=== PATIENT | male | born 1960 | race Caucasian/White ===

== ENCOUNTER 2025-04-13 10:00 | Emergency (ER) | payer MEDICARE, MEDICAID, SELFPAY ==
[2025-04-13] VITALS (22 sets, daily range): BP systolic 127–169; BP diastolic 46–72; PULSE 58–103; RESP 12–23; TEMP 36.7; O2SAT 98–100
--- NOTE | ~2025-04-13 | CT_ITS ---
EXAM/PROCEDURE: CT LE LT w con HISTORY: necrotic LLE COMPARISON: None available. TECHNIQUE: Contrast-enhanced CT of the left leg performed FINDINGS: [id number] begins at the level of the distal popliteal artery. There is moderately severe disease in the popliteal artery which is patent. The tibioperoneal trunk is nearly completely occluded in the distal portion, however flow extends into the anterior and posterior tibial arteries to the hindfoot region. The anterior tibial artery is severely narrowed, with the peroneal artery robust and providing collateralization to the dorsalis pedis artery in the hindfoot region. There appears to be open wound along the anterior margin of the distal calf with subjacent erosive changes in the tibia consistent with osteitis/osteomyelitis. Degenerative changes throughout the bones. Extensive edematous changes in the subcutaneous soft tissues throughout the calf ankle and foot. The deep compartments appear relatively preserved, however along the anterior margin of the distal leg/tibia, there appears to be soft tissue irregularity possibly representing open wound. There is more extensive infiltrative appearing changes subjacent to this but no drainable fluid collection seen. No evidence of architectural distortion within the deep compartments of the calf or compartment syndrome. IMPRESSION: 1. There appears to be open wound along the anterior margin of the distal calf adjacent to the anterior margin of the tibia with subjacent erosive changes in the tibia consistent with osteitis/osteomyelitis. Consider correlation with MRI for better evaluating the extent of suspected osteomyelitis. 2. No abscess seen. Extensive edematous changes which could be associated with vascular congestion, though inflammatory/infectious process such as cellulitis could have a similar appearance. 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 The dorsalis pedis artery is patent with collateralized flow from the peroneal artery. Reviewed, dictated and finalized at location A. OR TELECOMMUNICATIONS CONSULTANT IMPRESSION: 1. There appears to be open wound along the anterior margin of the distal calf adjacent to the anterior margin of the tibia with subjacent erosive changes in the tibia consistent with osteitis/osteomyelitis. Consider correlation with MRI for better evaluating the extent of suspected osteomyelitis. 2. No abscess seen. Extensive edematous changes which could be associated with vascular congestion, though inflammatory/infectious process such as cellulitis could have a similar appearance. Also correlate with clinical exam for 3.Moderate to severe stenosis in the tibial peroneal trunk as well as the anter ior tibial artery. The dorsalis pedis artery is patent with collateralized flow from the peroneal artery.
--- NOTE | 2025-04-13 10:21 | ED.LOWEXIN ---
HPI - Extremity Injury (Lower) General Chief Complaint: Extremity Injury, Lower Stated Complaint: foot issue Time Seen by Provider: 04/13/25 10:12 History of Present Illness HPI Narrative: Patient had a spider bite about 2 years ago to left lower leg, complicated by necrosis, requiring debridement, and osteomyelitis. Wound care nurse noticed that it seemed to be looking worse and sent him in today. Related Data Allergies Allergy/AdvReac Type Severity Reaction Status Date / Time No Known Allergies Allergy Unknown Verified 04/13/25 11:16 Review of Systems Review of Systems: All systems reviewed & are unremarkable except as noted in HPI and below Exam Narrative: EXAMINATION OF ORGAN SYSTEMS/BODY AREAS: Constitutional: Vital signs per nursing GENERAL:No acute distress, non-toxic appearing. HEAD: Normal with no signs of head trauma. EYES: EOMI, conjunctiva normal ENT: Hearing grossly intact LUNGS: Nonlabored breathing. HEART: Regular rate and rhythm ABD: Soft, nontender to palpation EXT: Normal range of motion, large necrotic chronic appearing wound to the left lower leg SKIN: Large necrotic chronic appearing wound to the left lower leg NEURO: Alert. No gross focal sensory or strength deficits. PSYCH: Normal affect Course Vital Signs Vital signs: Vital Signs Temperature 98.1 F 04/13/25 10:01 Pulse Rate 77 04/13/25 10:01 Respiratory Rate 15 04/13/25 10:01 Blood Pressure 143/63 H 04/13/25 10:01 Pulse Oximetry 100 04/13/25 10:01 Oxygen Delivery Room Air 04/13/25 10:01 Temperature 98.1 F 04/13/25 10:01 Pulse Rate 64 04/13/25 12:32 Respiratory Rate 19 04/13/25 12:32 Blood Pressure 134/61 04/13/25 12:32 Pulse Oximetry 100 04/13/25 11:17 Oxygen Delivery Room Air 04/13/25 10:01 [facility] MDM Narrative Medical decision making narrative: Patient presents here with worsening left leg wound, sent here by wound care. Labs and CT concerning for osteomyelitis, elevated white count, CRP, ESR. Patient had most recent surgery done at [facility], so I will plan to transfer him back there. Dr. Dianelys prado at [facility] for continuity of care where pt had vascular surgery. Differential Diagnosis Differential Diagnosis: osteo, gangrene, etc Lab Data 04/13/25 10:44 04/13/25 10:44 Labs: Lab Results 04/13/25 04/13/25 Range/Units 10:44 11:04 WBC 10.6 H (4.5-10.0) K/mm3 RBC 4.48 L (4.6-6.20) M/mm3 Hgb 13.1 L (14.0-18.0) g/dL Hct 40.7 L (42.0-52.0) % MCV 90.8 (80-100) fl MCH 29.2 (26-34) pg MCHC 32.2 (32-36) g/dl RDW 13.3 (11.5-14.5) % Plt Count 326 (150-375) k/mm3 MPV 9.6 (7.4-10.4) fl Immature Gran % (Auto) 0.5 (0-0.5) % Neut % (Auto) 69.2 (45.5-73.1) % Lymph % (Auto) 22.9 (18.3-44.2) % Boyle % (Auto) 5.0 (2.6-8.5) % Eos % (Auto) 2.0 (0-4.4) % Baso % (Auto) 0.4 (0.2-1.2) % Lymph # (Auto) 2.42 (0.9-3.2) K/mm3 Boyle # (Auto) 0.5 (0.1-0.6) K/mm3 Eos # (Auto) 0.2 (0-0.3) K/mm3 Baso # (Auto) 0.0 (0.0-0.1) K/mm3 Abs Immat Gran (auto) 0.05 H (0.00-0.031) K/mm3 Absolute Neuts (auto) 7.3 H (1.3-6.7) K/mm3 Absolute Nucleated RBC 0.000 (0.0-0.012) K/mm3 Nucleated RBC % 0.0 (0.0-0.2) % ESR 99 H (0-20) mm/hr Sodium 141 (137-145) mmol/L Potassium 4.5 (3.4-5.0) mmol/L Chloride 105 (98-107) mmol/L Carbon Dioxide 26 (22-30) mmol/L Anion Gap 10 (4-12) mmol/L BUN 14 (9-20) mg/dL Creatinine 0.98 (0.7-1.3) mg/dL Estim Creat Clear Calc 63 ml/min Estimated GFR > 60 (59 - ) Glucose 104 (65-110) mg/dL Lactic Acid 1.4 (0.7-2.0) mmol/L Calcium 9.3 (8.4-10.2) mg/dL Total Bilirubin 0.5 (0.2-1.3) mg/dL AST 30 (17-59) U/L ALT 20 (6-50) U/L Alkaline Phosphatase 83 (38-126) U/L C-Reactive Protein 2.6 H (<1.0) mg/dL Total Protein 9.0 H (6.3-8.2) g/dL Albumin 4.5 (3.5-5.1) g/dL Urine Color Yellow (Yellow) Urine Appearance Clear (Clear) Urine pH 5.5 (5.0-9.0) Ur Specific [place] 1.006 (1.001-1.035) Urine Protein Negative (Negative) mg/dL Urine Glucose (UA) Negative (Negative) mg/dL Urine Ketones Negative (Negative) mg/dL Ur Blood (Man) Negative (Negative) Urine Nitrate Negative (Negative) Urine Bilirubin Negative (Negative) Urine Urobilinogen 0.2 (<2.0) mg/dL Leukocyte Esterase Rfl Negative (Negative) RONIT/UL Imaging Data Radiologist's impression: ITS Impressions Lower Extremity CT 04/13/25 11:47 IMPRESSION: 1. There appears to be open wound along the anterior margin of the distal calf adjacent to the anterior margin of the tibia with subjacent erosive changes in the tibia consistent with osteitis/osteomyelitis. Consider correlation with MRI for better evaluating the extent of suspected osteomyelitis. 2. No abscess seen. Extensive edematous changes which could be associated with vascular congestion, though inflammatory/infectious process such as cellulitis could have a similar appearance. 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 The dorsalis pedis artery is patent with collateralized flow from the peroneal artery. Critical Care Time Critical Care Time Critical Care Time: Yes Indication: Necrotic leg would Initial evaluation, discuss w/ involved parties, attempting to gather old records: 10 minutes Documenting medical record: 5 minutes Review of results (EKG's, labs, imaging): 5 minutes Serial repeat bedside evaluation: 10 minutes Discussing case with multiple memebers of the care team and consultants: 5 minutes Total Critical Care Time: 35 Discharge Plan Discharge Clinical Impression: Leg wound, left Patient Disposition: Acute Care Hospital Condition: Serious Patient Language: Amharic Follow-up/Referrals: Lucien,Bello Hooker [Non-Staff]
[2025-04-13 10:52] LABS: Hematocrit 40.7 % (42.0-52.0); Hemoglobin 13.1 g/dL (14.0-18.0); Immature Granulocyte Percent A 0.5 % (0-0.5); Lymphocytes Absolute Auto 2.42 K/mm3 (0.9-3.2); Mean Corpuscular HGB Conc 32.2 g/dl (32-36); Mean Corpuscular Hemoglobin 29.2 pg (26-34); Mean Corpuscular Volume 90.8 fl (80-100); Nucleated Red Blood Cells Absolute Auto 0.000 K/mm3 (0.0-0.012); Nucleated Red Blood Cells Perc 0.0 % (0.0-0.2); Platelet Count Result 326 k/mm3 (150-375); Red Blood Count 4.48 M/mm3 (4.6-6.20); White Blood Count 10.6 K/mm3 (4.5-10.0)
[2025-04-13 11:08] LABS: Alanine Aminotransferase 20 U/L (6-50); Albumin Level 4.5 g/dL (3.5-5.1); Alkaline Phosphatase 83 U/L (38-126); Anion Gap 10 mmol/L (4-12); Aspartate Amino Transferase 30 U/L (17-59); Bilirubin,Total 0.5 mg/dL (0.2-1.3); Blood Urea Nitrogen 14 mg/dL (9-20); CRP 2.6 mg/dL (<1.0); Calcium 9.3 mg/dL (8.4-10.2); Carbon Dioxide 26 mmol/L (22-30); Chloride 105 mmol/L (98-107); Estimated CRCL calculation 63 ml/min; Estimated Glomerular Filt Rate > 60; Glucose 104 mg/dL (65-110); Potassium 4.5 mmol/L (3.4-5.0); Sodium 141 mmol/L (137-145); Total Protein 9.0 g/dL (6.3-8.2)
[2025-04-13 11:13] LABS: Add Urine Microscopic? NO; Appearance Urine Clear (Clear); Glucose Urine UA Negative (Negative); Leukocyte Esterase Ur Negative LEU/UL (Negative); Nitrate Urine Negative (Negative); Specific Grav Ur 1.006 (1.001-1.035)
[2025-04-13] MEDS: MORPHINE SULFATE (*CRX) 4 MG/ML INJ 2 MG IV PUSH (11:17)
--- OUTSIDE RECORDS SUMMARY | 2025-04-13 12:57 | XMS_ITS | Encounter Summary ---
Author Organization 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 Gender Identity Not on file Sexual Orientation Not on file documented as of this encounter Plan of Treatment Not on file documented as of this encounter Procedures Procedure Name Priority Date/Time Associated Diagnosis Comments VANCOMYCIN LEVEL TROUGH STAT 12/03/2024 5:30 AM CDT documented in this encounter Results * VANCOMYCIN LEVEL TROUGH (12/03/2024 5:30 AM CDT) Vancomycin Trough 14.6 10.0 - 20.0 ug/mL 12/03/2024 9:46 AM CDT [facility] Blood BLOOD SPECIMEN / Unknown Venipuncture / Unknown 12/03/2024 5:30 AM CDT 12/03/2024 9:24 AM CDT us Provider Unknown LAB - CHEMISTRY ORDERABLES Di l Result [facility] [address] [place] [address] documented in this encounter Visit Diagnoses Not on filedocumented in this encounter Care Teams Harp Action Assembler Relationship Specialty Start Date End Date Arsen Alan MD PCP - General Internal Medicine 02/25/12 documented as of this encounter
--- OUTSIDE RECORDS SUMMARY | 2025-04-13 12:57 | XMS_ITS | Patient Health Record ---
Author Organization [facility] Address [address] [address] Care Team Providers Care Spray Gun Sizer Name Role Phone Arsen Alan Primary Care Provider Reason For Referral No Information Medications Medication SIG (Take, Route, Frequency, Duration) Notes Start Date End Date Status traMADol HCl 50MG 1 tablet PO every 6 hrs [facility] 04/29/18 00 Active Clobetasol Propionate 0.05% 1 application to affected area Externally Twice a day [facility] Atorvastatin Calcium 10MG OR BEDTIME [facility] Not-Taking Immunizations Vaccine Route Administration Date Status Comme nts Influenza (split), 3 yrs and above Unknown 02/11/2013 Pending Inactivated Pneumococcal polysaccharide PPV23 Unknown 02/11/2013 Administered Social History Tobacco use other than smoking: Question Answer Notes Are you an other tobacco user? No Problems Problem Type SNOMED Code ICD Code Onset Dates Problem Status W/U Status Risk Notes Problem Hyperlipidemia (21827345) Hyperlipidemia (E78.5) Active confirmed Problem Hyperglycemia (34866134) Hyperglycemia (R73.9) Active confirmed Problem Back pain (782128203) Back pain (M54.9) Active confirmed Problem Tobacco abuse (5180698603) Tobacco abuse (Z72.0) Active confirmed Problem Psoriasis (0321477) Psoriasis (L40.9) Active confirmed Problem Hyperlipidemia (82908249) Other and unspecified hyperlipidemia (272.4) Active confirmed Problem Elevated white blood cell count (288.6) Active confirmed Problem Diseases of blood and blood-forming organs (411664245) Other diseases of blood and blood-forming organs (289) Active confirmed Problem Psychosexual dysfunction associated with inhibited sexual excitement (232908147575837) 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 Problem Abnormal glucose level (982075734) Other abnormal glucose (790.29) Active confirmed Plan Of Treatment No Information Insurance Providers Payer Name Payer Address Payer Phone Subscriber Number Group Number Insured Name Patient Relationship to Insured Coverage Start Date Coverage End Date [employer] [facility] [address] [address] [place], [place] [id number] ALIE HUYNH Self - patient is the insured 5 Medical (General) History Medical History History ICD Code Hyperlipidemia Low back pain Psoriasis Secondary polycythemia Surgical History Surgery Date(Month/Year) Pneumothorax Rt. arm surgery
--- OUTSIDE RECORDS SUMMARY | 2025-04-13 12:57 | XMS_ITS | Clinical Summary ---
Author Organization [facility] Address [address] [place] [address] Care Team Providers Care Software Computer Specialist Name Role Phone Arsen Alan MD Primary Care Provider Source Comments [facility] [employer],non-owned Affiliates and Associated Physician Practices is amultiple site organization consisting of ambulatory clinics and hospital sitesin [place], [place], [place] and [place]. This disclosure is being madepursuant to the Care Everywhere program and may not contain all information available regarding this patient. 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 Gender Identity Not on file Sexual Orientation Not on file Plan of Treatment Health Maintenance Due Date Last Done Comments COLOGUARD (AGES 45-75) - COL ON CA SCREENING 1958 COLON MONITORING 1958 COLONOSCOPY - COLON CA SCREENING 1958 CT COLONOGRAPHY - COLON CA SCREENING 1958 Colorectal Cancer Screening 1958 FIT - COLON CA SCREENING 1958 FLEX SIG - COLON CA SCREENING 1958 LIPID TESTING 1958 HEPATITIS C SCREENING 10/07/1976 DTAP/TDAP/TD VACCINES (1 - Tdap) 1977 PNEUMOCOCCAL VACCINE 50+ (1 of 1 - PCV) 2008 ZOSTER VACCINE (1 of 2) 2008 DEPRESSION SCREENING 04/29/2024 MEDICARE AWV CALENDAR YEAR 2024 COVID-19 VACCINE (1 - 2024-2 6 season) 2024 INFLUENZA VACCINE (#1) 2024 Respiratory Syncytial Virus (RSV) Vaccine Pt: or over 60 yrs (1 - 1-dose 75+ series) 2033 HEPATITIS B VACCINE Aged Out No longe r eligible based on patient's age to complete this topic HIB VACCINE Aged Out No longer eligi ble based on patient's age to complete this topic HPV VACCINE Aged Out No longer eligi ble based on patient's age to complete this topic MENINGOCOCCAL (Group B) VACC INE SHARED DECISION-MAKING Aged Out No longer eligibl e based on patient's age to complete this topic MENINGOCOCCAL GROUPS A/C/Y/W VACCINE Aged Out No longer eligible b ased on patient's age to complete this topic Insurance [facility] - [place] Care Teams Software Computer Specialist Relationship Specialty Start Date End Date Arsen Alan MD PCP - General Internal Medicine 02/25/12
[2025-04-13] MEDS: VANCOMYCIN 1,500 MG/NS 500 ML BAG 250 MG IVPB (13:12)
[2025-04-13] MEDS: VANCOMYCIN 500 MG/NS 100 ML 500 MG/100 ML BAG 100 MG IVPB (15:23)
[2025-04-13] MEDS: ACETAMINOPHEN 325 MG TABLET 650 MG PO (15:32)
[2025-04-13] MEDS: NICOTINE (*PBKC) 14 MG PATCH 1 PATCH TRANSDERM (15:33)
--- NOTE | 2025-04-13 18:25 | PC.NURSE ---
pt got dressed into his clothing and walked out saying he was going to have a bowel movement then leaving. EDP Dr. Tinajero made aware. this RN and EDP went into the room and educated pt. pt says he wanted to wait for a room at his facility, pt was educated that is not the process. pt says he wanted to smoke a cigarette outside, this RN let pt know he cannot do that due to the IVs in his arms, pt said to take them out and reinsert them, this RN educated pt that it is not the process. pt did have a nicotine patch applied previous to this discussion. after a lengthy discussion pt ultimately decided to stay pt also complained about the food. I let the pt know that we can order something different but I have no control over the food quality. pt was verbally aggressive towards this RN and yelling. pt unwilling to partipate in his care
[2025-04-13] MEDS: MORPHINE SULFATE (*CRX) 4 MG/ML INJ IV PUSH (21:46)
[2025-04-13] MEDS: PREGABALIN (*CRX) 50 MG CAPSULE PO (21:48)
[2025-04-14] VITALS (30 sets, daily range): BP systolic 107–151; BP diastolic 41–65; PULSE 49–77; RESP 13–21; TEMP 36.6; O2SAT 92–99
[2025-04-14] MEDS: MORPHINE SULFATE (*CRX) 4 MG/ML INJ IV PUSH ×5 (00:56→18:04)
[2025-04-14 05:37] LABS: Estimated CRCL calculation 66 ml/min; Estimated Glomerular Filt Rate > 60
[2025-04-14] MEDS: VANCOMYCIN 1,500 MG/NS 500 ML 1,500 MG/500 ML BAG 250 MG IVPB (06:41)
--- NOTE | 2025-04-14 07:29 | PC.NURSE ---
Breakfast tray ordered for pt.
[2025-04-14] MEDS: oxyCODONE/ACETAMINOPHEN (*CRX) 10-325 MG TABLET 1 TAB PO (08:10)
[2025-04-14] MEDS: PREGABALIN (*CRX) 50 MG CAPSULE PO (08:11)
--- NOTE | 2025-04-14 08:49 | PC.NURSE ---
Pts bedside tray cleaned up from trash from pt. Pts urine emptied x 2 by this RN and placed back at bedside. Pt offered wash cloth to clean up, fresh gown, fresh sheets and hygiene kit and all were declined by pt. Pt given 2 sodas by this RN.
--- NOTE | 2025-04-14 09:26 | PC.NURSE ---
0925 Gave update to Joy from [facility] transfer center on pts condition.
--- NOTE | 2025-04-14 09:33 | PC.NURSE ---
Spoke with Jackelin from pharmacy for pts 20mg Lasix tablet.
--- NOTE | 2025-04-14 09:48 | PC.NURSE ---
Pt refusing 20mg Lasix tablet at this time. Pt states I don't know why they give me that. Sometimes I think they just want my body to run how they want it to. EDP Dr. Chowdary aware.
--- NOTE | 2025-04-14 11:40 | PC.NURSE ---
No Bed remains on wait list
[2025-04-14] MEDS: oxyCODONE HCL (*CRX) 5 MG TAB IR 10 MG PO (15:47)
== END 2025-04-14 18:18 | disposition short-term general hospital (02) ==
PROVIDERS: Emergency Provider Emergency Medicine
DX: I96 Gangrene, not elsewhere classified (principal); T63.301A Toxic effect of unspecified spider venom, accidental (unintentional), initial encounter; I70.202 Unspecified atherosclerosis of native arteries of extremities, left leg
CPT/HCPCS: 36415; 73701; 80053; 81003; 82565; 83605; 85025; 85652; 86140; 87040; 96365; 96366; 96375; 96376; 99285; A9270; J2270; J3373; Q9967